=== PATIENT | male | born 1940 | race Caucasian/White ===

== ENCOUNTER 2021-02-06 14:51 | Emergency (ER) | payer MEDICARE, BC ==
[2021-02-06] MEDS ORDERED: Acetaminophen 325 MG TAB ONE (15:32)
[2021-02-06 17:40] LABS: #Monocytes 1.1 10x3/uL (0.0-1.1); #Neutrophils 7.6 10x3/uL (1.5-8.4); %Basophils 0.1 % (0.0-2.0); %Lymphocytes 3.8 % (18.0-47.0); %Monocytes 12.1 % (0.0-10.0); %Neutrophils 83.7 % (40.0-75.0); Mean Corpuscular HGB CONC 32.4 g/dL (32.0-36.0); Mean Corpuscular Hemoglobin 31.9 pg (27.0-33.0); Mean Corpuscular Volume 98.6 fl (81.2-95.1); Mean Platelet Volume 10.3 fl (7.4-10.4); Platelet Count 173 10x3/uL (150-450); RBC Distribution Width 14.4 % (11.5-14.5); Red Blood Cell (RBC) Count 2.82 10x6/uL (4.32-5.72); White Blood Cell (WBC) Count 9.1 10x3/uL (3.5-10.5)
[2021-02-06 17:49] LABS: ALT (SGPT) 34 U/L (8-55); AST (SGOT) 40 U/L (5-34); Albumin 3.6 g/dL (3.4-4.8); Alkaline Phosphatase 52 U/L (40-110); Anion Gap 14 mmol/L (10-20); BUN (Urea Nitrogen) 23 mg/dL (8.4-25.7); Bilirubin, Total 0.3 mg/dL (0.2-1.2); Calc. Creatinine Clearance 0 mL/min (70-130); Calcium 8.9 mg/dL (7.8-10.44); Carbon Dioxide 26 mmol/L (23-31); Chloride 103 mmol/L (98-107); Globulin 2.4 g/dL (2.4-3.5); Glucose 128 mg/dL (83-110); Potassium 3.9 mmol/L (3.5-5.1); Sodium 139 mmol/L (136-145)
== END 2021-02-06 19:43 | disposition home or self-care (01) ==
LOC: CSHERS 14:51
DX: U07.1 COVID-19 (principal); J12.82 Pneumonia due to coronavirus disease 2019; I10 Essential (primary) hypertension; D64.9 Anemia, unspecified; E78.5 Hyperlipidemia, unspecified
CPT/HCPCS: 36415; 71045; 80053; 83605; 84484; 85025; 87040

== ENCOUNTER 2022-05-30 00:50 | Emergency (ER) | payer MEDICARE, BC ==
[2022-05-30] MEDS ORDERED: Fentanyl 100 MCG/2 ML VIAL ONE ×2 (01:37→03:20)
[2022-05-30] MEDS ORDERED: HYDROcodone/Acetaminophen 5/325 mg Tablet ONE (02:01)
[2022-05-30 02:26] LABS: Bilirubin Neg (Negative); Blood, Urine 250 (Negative); Clarity Mucous (Clear); Glucose, Urine (Dipstick) 50 mg/dL (Negative); Ketone, Urine Negative (Negative); Leukocyte 500 (Negative); Nitrite Negative (Negative); Protein, Urine (Dipstick) 500 mg/dl (Neg-Trace); Urobilinogen Normal mg/dL (Less than 2)
[2022-05-30 02:51] LABS: Bacteria/HPF 2+ HPF (None Seen); RBC/HPF Greater than 50 HPF (0-3); Squamous Epithelial None Seen HPF (0-3); WBC/HPF 21-50 HPF (0-3)
[2022-05-30] MEDS ORDERED: Tamsulosin HCl 0.4 MG CAP ONE (03:22)
[2022-05-30] MEDS ORDERED: Ondansetron PF 4 MG/2 ML Vial ONE (03:26)
[2022-05-30] MEDS ORDERED: Oxybutynin 5 MG TAB PO SCH (04:00)
== END 2022-05-30 06:40 | disposition home or self-care (01) ==
LOC: CSHERS 00:50
DX: T83.091A Other mechanical complication of indwelling urethral catheter, initial encounter (principal); I10 Essential (primary) hypertension
CPT/HCPCS: 51798; 81003; 81015; 87086; 96374; 96375; 96376; J2405; J3010

== ENCOUNTER 2023-01-08 12:42 | Outpatient (CLI) | payer MEDICARE, BC | END 2023-01-08 12:43 | disposition home or self-care (01) | LOC: CSHRAD 12:42 | PROVIDERS: ATTEND Specialist | DX: Z01.818 Encounter for other preprocedural examination (principal); Z95.0 Presence of cardiac pacemaker; M41.9 Scoliosis, unspecified | CPT/HCPCS: 71046 ==